=== PATIENT | female | born 1970 | race Native Hawaiian/Other Pacific Islander ===

== ENCOUNTER 2016-09-30 07:23 | Outpatient (CLI) | payer OTHER | END 2016-09-30 19:29 | disposition home or self-care (01) | LOC: LABW 07:23 | DX: R17 Unspecified jaundice (principal) | CPT/HCPCS: 36415; 80074; 82247; 82248 ==

== ENCOUNTER 2016-10-04 08:14 | Outpatient (CLI) | payer OTHER | END 2016-10-04 19:32 | disposition home or self-care (01) | LOC: US 08:14 | DX: R17 Unspecified jaundice (principal) ==

== ENCOUNTER 2017-05-10 08:14 | Outpatient (CLI) | payer OTHER | END 2017-05-10 19:01 | disposition home or self-care (01) | LOC: MAMMO 08:14 | DX: Z12.31 Encounter for screening mammogram for malignant neoplasm of breast (principal) ==

== ENCOUNTER 2021-05-04 09:45 | Outpatient (CLI) | payer OTHER | END 2021-05-04 21:07 | disposition home or self-care (01) | LOC: RAD 09:45 | PROVIDERS: ATTEND Student in an Organized Health Care Education/Training Program | DX: Z78.0 Asymptomatic menopausal state (principal); Z12.31 Encounter for screening mammogram for malignant neoplasm of breast ==

== ENCOUNTER 2021-07-01 09:20 | Outpatient (CLI) | payer OTHER | END 2021-07-01 20:16 | disposition home or self-care (01) | LOC: MAMMO 09:20 | PROVIDERS: ATTEND Nurse Practitioner Family | DX: R92.8 Other abnormal and inconclusive findings on diagnostic imaging of breast (principal) ==